=== PATIENT | female | born 1975 | race Caucasian/White ===

== ENCOUNTER → 2016-11-22 | Outpatient (CLI) | payer BC ==
[~2016-11-22] MED LIST: DOCU100C37 PO; HYDR-3816 PO; IBUP-1773 PO; LEVO25TA5 PO; SIME80TA16 PO
--- OUTSIDE RECORDS SUMMARY | 2016-11-22 13:52 | XMS REPORT | Continuity of Care Document ---
Author Author [facility] Organization [facility] Address Unknown Phone Unavailable Allergies Medications Problems Date Dx Coded Attending Type Code Diagnosis Diagnosed By 09/08/2015 EL LOCKE MD Ot Z12.31 10/27/2016 EL LOCKE MD Ot Z12.31 ENCNTR SCREEN MAMMOGRAM FOR MALIGNANT NE 10/27/2016 EL LOCKE MD Ot Z12.31 ENCNTR SCREEN MAMMOGRAM FOR MALIGNANT NE 10/27/2016 EL LOCKE MD Ot Z12.31 ENCNTR SCREEN MAMMOGRAM FOR MALIGNANT NE 10/30/2016 EL LOCKE MD Ot Z12.31 ENCNTR SCREEN MAMMOGRAM FOR MALIGNANT NE 10/30/2016 EL LOCKE MD Ot Z12.31 ENCNTR SCREEN MAMMOGRAM FOR MALIGNANT NE Procedures Results Encounters ACCT No. Visit Date/Time Discharge Status Pt. Type Provider Facility Loc./Unit Complaint [id number] 08/26/2015 10:21:00 ACT Outpatient EL LOCKE MD [facility] RAD SCREENING
--- NOTE | 2016-11-22 19:33 | Diagnostic Imaging Report ---
Transabdominal and transvaginal pelvic ultrasound. INDICATION: Irregular bleeding. Dysmenorrhea. FINDINGS: The uterus is 9.6 x 6.2 x 5.9 cm. The endometrial stripe is 0.7 cm in thickness. The myometrium is slightly heterogeneous. There is an isoechoic nodule in the anterior aspect of the myometrium within the uterine body measuring 1.3 x 1 x 1.3 cm suggestive of a fibroid. The right ovary is 4.1 x 4.4 x 4.5 cm only seen on transabdominal imaging and demonstrates a cyst measuring 3.1 cm with minimal internal echoes. This is only seen on transabdominal view. The left ovary is not seen, obscured by bowel gas. IMPRESSION: 1. Enlarged slightly heterogeneous uterus with 1.3 cm anterior myometrial fibroid. Background adenomyosis in the myometrium could be present. 2. A 3.1 cm cystic lesion in the right ovary with minimal internal echoes, probably a complicated cyst. Followup ultrasound in 6 weeks is recommended. 3. The left ovary is not seen. Dictated by: Dictated on workstation # [id number]
== END ==
LOC: RAD 13:48
PROVIDERS: ATTEND Obstetrics & Gynecology
DX: N93.8 Other specified abnormal uterine and vaginal bleeding (principal); N94.5 Secondary dysmenorrhea; L68.0 Hirsutism
CPT/HCPCS: 76830; 76856

== ENCOUNTER 2016-12-04 14:17 | Outpatient (CLI) | payer BC ==
[~2016-12-04] VITALS: Ht 162.6 cm; Wt 92.2 kg
--- OUTSIDE RECORDS SUMMARY | 2016-12-04 14:21 | XMS REPORT | Continuity of Care Document ---
Author Author [facility] Organization [facility] Address Unknown Phone Unavailable Allergies Medications Problems [...] Z12.31 ENCNTR SCREEN MAMMOGRAM FOR MALIGNANT NE 11/22/2016 EL LOCKE MD Ot Z12.31 ENCNTR SCREEN MAMMOGRAM FOR MALIGNANT NE 11/22/2016 BRET STEWART DO Ot L68.0 HIRSUTISM 11/22/2016 BRET STEWART DO Ot N93.8 OTHER SPECIFIED ABNORMAL UTERINE AND VAG 11/22/2016 BRET STEWART DO Ot N94.5 SECONDARY DYSMENORRHEA Procedures Results Encounters ACCT No. Visit Date/Time Discharge Status Pt. Type Provider Facility Loc./Unit Complaint [id number] 11/22/2016 13:48:00 ACT Outpatient BRET STEWART DO [facility] RAD ABNORMAL UTERINE BLEEDING [id number] 08/26/2015 10:21:00 ACT Outpatient EL LOCKE MD [facility] RAD SCREENING
[2016-12-04] MEDS ORDERED: LEVO25TA5 PO (14:29)
[2016-12-04 14:32] VITALS: BP 128/74
[2016-12-04 15:06] LABS: BASOPHILS % (AUTO) 0 % (0-10); EOSINOPHILS # (AUTO) 0.1 10^3/uL (0.0-0.3); EOSINOPHILS % (AUTO) 1 % (0-10); LYMPHOCYTES # (AUTO) 2.1 X 10^3 (1.0-4.0); LYMPHOCYTES % (AUTO) 30 % (12-44); MEAN CORPUSCULAR HEMOGLOBIN 30 PG (25-34); MEAN CORPUSCULAR HGB CONC 35 G/DL (32-36); MEAN CORPUSCULAR VOLUME 86 FL (80-99); MEAN PLATELET VOLUME 9.9 FL (7.4-10.4); MONOCYTES # (AUTO) 0.4 X 10^3 (0.0-1.0); MONOCYTES % (AUTO) 5 % (0-12); NEUTROPHILS # (AUTO) 4.3 X 10^3 (1.8-7.8); NEUTROPHILS % (AUTO) 63 % (42-75); PLATELET COUNT 227 10^3/uL (130-400); RED BLOOD COUNT 4.18 10^6/uL (4.35-5.85); RED CELL DISTRIBUTION WIDTH 12.5 % (10.0-14.5); WHITE BLOOD COUNT 6.9 10^3/uL (4.3-11.0)
[2016-12-04 15:35] LABS: BAND NEUTROPHILS 0 %; BASOPHILS % (MANUAL) 0 %; EOSINOPHILS % (MANUAL) 2 %; LYMPHOCYTES % (MANUAL) 27 %; NEUTROPHILS % (MANUAL) 69 %
== END 2016-12-04 15:14 | disposition home or self-care (01) ==
LOC: PREOP 14:17
PROVIDERS: ATTEND Obstetrics & Gynecology
DX: Z01.812 Encounter for preprocedural laboratory examination (principal); Z11.2 Encounter for screening for other bacterial diseases; D25.9 Leiomyoma of uterus, unspecified
CPT/HCPCS: 36415; 85007; 85027; 86850; 86900; 86901; 87081

== ENCOUNTER 2016-12-06 09:20 | Day surgery (SDC) | payer BC ==
[~2016-12-06] VITALS: Ht 162.6 cm; Wt 92.2 kg
[~2016-12-06 09:20] MED LIST changes: -DOCU100C37 PO; -HYDR-3816 PO; -IBUP-1773 PO; -SIME80TA16 PO
--- OUTSIDE RECORDS SUMMARY | 2016-12-06 09:27 | XMS REPORT | Continuity of Care Document ---
Author Author [facility] Organization [facility] Address Unknown Phone Unavailable Care Team Providers Care Quantitative Equity Head Name Role Phone NO, LOCAL PHYSICIAN PCP Unavailable Insurance Providers Payer Name Policy Number Subscriber Name [facility] [id number] Rosalva Peters Self / Same As Patient Advance Directives Directive Response Recorded Date/Time Advance Directives No 12/04/16 2:27pm Health Care Power of Public Relations Writer No 12/04/16 2:27pm Resuscitation Status Full Code 12/04/16 2:27pm Problems No problem information available. Medications Current Home Medications Medication Dose Units Route Directions Days/Qty Instructions Start Date Levothyroxine Sodium 25 Mcg 25 Mcg Oral Daily 12/04/16 Social History Social History Problem Response Recorded Date/Time Alcohol Use Rarely Uses 12/04/2016 2:27pm Recreational Drug Use No 12/04/2016 2:27pm Recent Foreign Travel No 12/04/2016 2:26pm Recent Infectious Disease Exposure No 12/04/2016 2:26pm Sexually Transmitted Disease No 12/04/2016 2:27pm HIV/AIDS No 12/04/2016 2:27pm Smoking Status Never a Smoker 12/04/2016 2:27pm Recent Hopitalizations No 12/04/2016 2:27pm Sexually Transmitted Disease No 12/04/2016 2:27pm Query Response Start Date Stop Date Smoking Status Never a Smoker Hospital Discharge Instructions No hospital discharge instructions. Plan of Care Discharge Date 12/04/16 3:14pm Prescriptions See Medication Section Functional Status No functional status results. Allergies, Adverse Reactions, Alerts No known allergies. Immunizations No immunization records. Vital Signs Acute Vital Signs Vital Response Date/Time Pulse Rate (adult) 67 bpm (60 - 90) 12/04/2016 2:32pm Respiratory Rate 16 bpm (12 - 24) 12/04/2016 2:32pm O2 Sat by Pulse Oximetry 98 % (88 - 100) 12/04/2016 2:32pm Blood Pressure 128/74 mm Hg 12/04/2016 2:32pm Blood Pressure Mean 92 mm Hg 12/04/2016 2:32pm Pain Numeric Pain Scale 0-No Pain 12/04/2016 2:32pm Height (Feet) 5 feet 12/04/2016 2:26pm Height (Inches) 4.00 inches 12/04/2016 2:26pm Height (Calculated Centimeters) 162.142188 cm 12/04/2016 2:26pm Weight (Pounds) 203 pounds 12/04/2016 2:26pm Weight (Ounces) 3.0 oz 12/04/2016 2:26pm Weight (Calculated Grams) 27278.30 gm 12/04/2016 2:26pm Weight (Calculated Kilograms) 92.061358 kilograms 12/04/2016 2:26pm Calculated BMI 34.9 12/04/2016 2:26pm Results Pending Laboratory Results Test Name Collection Date/Time Procedures No known history of procedures. Encounters Encounter Location Arrival/Admit Date Discharge/Depart Date Attending Provider Departed Clinic [facility] 12/04/16 2:17pm 12/04/16 3: 14pm BRET STEWART DO Registered Clinic [facility] 11/22/16 1:48pm BRET STEWART DO
--- OUTSIDE RECORDS SUMMARY | 2016-12-06 09:27 | XMS REPORT | Continuity of Care Document ---
Author Author [facility] Organization [facility] Address Unknown Phone Unavailable Care Team Providers Care Meter Setter Name Role Phone NO, LOCAL PHYSICIAN PCP Unavailable Insurance Providers Payer Name Policy Number Subscriber Name Relationship [facility] [id number] Rosalva Peters Self / Same As Patient Advance Directives Directive Response Recorded Date/Time Advance Directives No 12/04/16 2:27pm Health Care Power of Baby Nurse No 12/04/16 2:27pm Resuscitation Status Full Code [...] 4.00 inches 12/04/2016 2:26pm Height (Calculated Centimeters) 162.720396 cm 12/04/2016 2:26pm Weight (Pounds) 203 pounds 12/04/2016 2:26pm Weight (Ounces) 3.0 oz 12/04/2016 2:26pm Weight (Calculated Grams) 78372.30 gm 12/04/2016 2:26pm Weight (Calculated Kilograms) 92.887240 kilograms 12/04/2016 2:26pm Calculated BMI 34.9 12/04/2016 2:26pm Results Pending Laboratory Results Test Name Collection Date/Time Procedures No known history of procedures. Encounters Encounter Location Arrival/Admit Date Discharge/Depart Date Attending Provider Departed Clinic [facility] 12/04/16 2:17pm 12/04/16 3: 14pm BRET STEWART DO Registered Clinic [facility] 11/22/16 1:48pm BRET STEWART DO
[2016-12-06] MEDS: LACTATED RINGERS 1,000 ML IV PRN ×2 (09:45→12:10)
[2016-12-06] MEDS ORDERED: metroNIDAZOLE 500MG/100ML IVPB 100 ML ONE (09:45)
[2016-12-06] MEDS ORDERED: ceFAZolin 2 GM/50 ML NS 50 ML IV ONE (09:45)
[2016-12-06] MEDS ORDERED: ceFAZolin 2 GM/NS 50 ML IV ONE (10:00)
[2016-12-06] MEDS ORDERED: metroNIDAZOLE 500 MG/100 ML IVPB (PRE-MIX) IV ONE (10:00)
--- NOTE | 2016-12-06 10:59 | Progress Note-Pre Operative ---
Pre-Operative Progress Note H&P Reviewed The H&P was reviewed, patient examined and no changes noted. Date H&P Reviewed: Dec 06, 2016 Time H&P Reviewed: 09:45 Pre-Operative Diagnosis: AUB, Fibroid uterus, Pelvic pain BRET STEWART DO Dec 06, 2016 10:59 am
[2016-12-06 11:10] VITALS: BP 117/74
[2016-12-06] MEDS ORDERED: BUPIVACAINE 0.25% 30 ML (SENSORCAINE) VIAL ONE (11:19)
[2016-12-06] MEDS ORDERED: MIDAZOLAM 2 MG/2 ML (VERSED) VIAL ONE (11:35)
[2016-12-06] MEDS ORDERED: SEVOFLURANE (ULTANE) 15 ML INHAL SOLN ONE ×7 (11:35→13:14)
[2016-12-06] MEDS ORDERED: LACTATED RINGERS 1,000 ML IV ONE ×3 (11:35→13:14)
[2016-12-06] MEDS ORDERED: proPOfol 200 MG/20 ML (DIPRIVAN) VIAL IV ONE ×2 (11:35→13:14)
[2016-12-06] MEDS ORDERED: LIDOCAINE PF 2% 10 ML (XYLOCAINE) AMP ONE (11:35)
[2016-12-06] MEDS ORDERED: fentaNYL INJECTION 250 MCG/5 ML AMP ONE (11:36)
[2016-12-06] MEDS ORDERED: HYDROmorphone (DILAUDID) 2 MG/ML VIAL ONE (12:46)
[2016-12-06] MEDS ORDERED: ONDANSETRON 4 MG/2 ML (SDV) Z0FRAN ONE (12:47)
[2016-12-06] MEDS ORDERED: morphine INJ 10 MG/ML 1ML (SYR OR VIAL) ONE (12:47)
[2016-12-06] MEDS ORDERED: KETOROLAC 30 MG/ML VIAL ONE ×2 (12:54→13:14)
[2016-12-06] MEDS ORDERED: GLYCOPYRROLATE 0.2 MG/ML (ROBINUL) 2 ML VIAL ONE (13:14)
[2016-12-06] MEDS ORDERED: ROCURONIUM 50 MG/5 ML (ZEMURON) VIAL IV ONE (13:14)
[2016-12-06] MEDS ORDERED: NEOSTIGMINE (BLOXIVERZ ) 1 MG/1ML 10 ML VIAL ONE (13:14)
[2016-12-06] MEDS: KETOROLAC 30 MG/ML VIAL IV PRN ×2 (13:15→18:51)
[2016-12-06] MEDS ORDERED: LACTATED RINGERS 1,000 ML IV SCH (13:17)
--- NOTE | 2016-12-06 13:19 | Discharge Inst-Women's Service ---
Discharge Inst-Women's Serv Depart Medication/Instructions New, Converted or Re-Newed RX: RX on Chart Consults/Follow Up Additional Follow Up: No Orders/Referrals Dr. Alvarado in 7-10 days and in 8 weeks Activity Activity: Activity as Tolerated Driving Instructions: No Driving for 1 Week NO SMOKING: NO SMOKING Nothing Inside Vagina: No Douching, No [place], No Tampons Diet Discharge Diet: No Restrictions Symptoms to Report to : Bleeding Excessive, Pain Increased, Fever Over 101 Degrees F, Vaginal Bleeding Increase, Questions/Concerns For Any Problems or Questions: Contact Your Physician Skin/Wound Care Infection Signs and Symptoms: Increased Redness, Foul Odor of Wound, Increased Drainage, Skin Itchy or Has a Rash, Increased Swelling, Temperature Above 101 F Operative Area Clean and Dry: Keep Incision Clean/Dry Stitches/Rinku/Dermabond: Dermabond, Care of Stitches Bathing Instructions: BRET Araujo DO Dec 06, 2016 13:19
[2016-12-06] MEDS ORDERED: HYDR-3816 PO (13:20)
[2016-12-06] MEDS ORDERED: SIME80TA16 PO (13:20)
[2016-12-06] MEDS ORDERED: IBUP-1773 PO (13:20)
[2016-12-06] MEDS ORDERED: DOCU100C37 PO (13:20)
[2016-12-06] MEDS ORDERED: CHLORASEPTIC LOZENGE MM PRN (13:30)
[2016-12-06] MEDS ORDERED: DOCUSATE SODIUM 100 MG (COLACE) CAP PO PRN (13:30)
[2016-12-06] MEDS ORDERED: ONDANSETRON 4 MG/2 ML (SDV) Z0FRAN IV PRN (13:30)
[2016-12-06] MEDS ORDERED: SIMETHICONE 80 MG (MYLICON) CHEW PO PRN (13:30)
[2016-12-06] MEDS ORDERED: HYDROcodone/APAP 7.5 MG/325 MG (LORTAB, LORCET PLUS) TABLET PO PRN (13:30)
[2016-12-06] MEDS ORDERED: ZOLPIDEM 5 MG (AMBIEN) TAB PO PRN (13:30)
[2016-12-06] MEDS ORDERED: ANTACID SUSP 30 ML UDC (MYLANTA) PO PRN (13:30)
[2016-12-06] MEDS ORDERED: HYDROmorphone (DILAUDID) 2 MG/ML VIAL IV PRN (13:45)
[2016-12-06] MEDS ORDERED: fentaNYL INJECTION 100 MCG/2 ML AMP IV PRN (13:45)
[2016-12-06] MEDS ORDERED: ONDANSETRON 4 MG/2 ML (SDV) Z0FRAN IV ONE (13:45)
[2016-12-06] MEDS: morphine INJ 10 MG/ML 1ML (SYR OR VIAL) IV PRN ×2 (13:49→13:55)
[2016-12-06 14:55] VITALS: BP 110/67
[2016-12-06 15:45] VITALS: BP 118/68
[2016-12-06] MEDS ORDERED: FUROSEMIDE 40 MG/4 ML INJ (LASIX) IVP ONE (16:15)
[2016-12-06] MEDS ORDERED: FLU TRIvalent (5 YOA+) 2016-17 (AFLURIA) 0.5 ML IM ONE (18:00)
[2016-12-06 20:00] VITALS: BP 133/67
[2016-12-07] MEDS ORDERED: IBUPROFEN 600 MG (MOTRIN) TAB PO PRN (06:00)
--- NOTE | 2016-12-07 08:40 | OPERATIVE REPORT ---
PROCEDURE PHYSICIAN: GASTON STEWART DATE OF PROCEDURE: 12/06/2016 PREOPERATIVE DIAGNOSIS: 1. 42-year-old female with chronic pelvic pain. 2. Abnormal uterine bleeding. 3. Fibroid uterus. POSTOPERATIVE DIAGNOSIS: 1. 42-year-old female with chronic pelvic pain. 2. Abnormal uterine bleeding. 3. Fibroid uterus. PROCEDURE: Robotic assisted total laparoscopic hysterectomy with bilateral salpingectomy, greater than 250 grams. SURGEON: Dr. Gaston Stewart. RUBBER STAMP MAKER: Vonda Najera APRN ANESTHESIA: General endotracheal. ESTIMATED BLOOD LOSS: 30 mL. URINE OUTPUT: 50 mL, clear at the end of the procedure. FLUIDS: 1200 mL of lactated ringer solution. FINDINGS: Bulky hyperemic appearing uterus with grossly normal bilateral fallopian tubes, and ovaries. Areas suggestive of chronic endometriosis. SPECIMEN SENT: Uterus, bilateral fallopian tubes. INDICATIONS FOR THE PROCEDURE: Please see admission H&P for complete details, pertaining to patient's admission. Indications for operative procedure as well as risk, alternatives were discussed with the patient. The patient's consent was taken in the preoperative area and after the consent was reviewed and all of her questions were answered. OPERATIVE REPORT IN DETAIL: Once in the operating room, general anesthesia was found to be adequate. She was placed in dorsal lithotomy position, prepped and draped in the normal sterile fashion. Ravi catheter was placed using sterile technique. A timeout is performed. A weighted speculum is inserted patient's vagina. A right angle retractor is used to visualize the cervix. It was grasped at the 12 o'clock position using a long single tooth tenaculum. An 0 Vicryl suture is placed at the anterior lip of the cervix and the single-tooth tenaculum is then removed. I then use that suture as my retraction point on the cervix. The cervix was then sounded and uterine cavity depth is found to be 8 cm. I then select an 8 cm manipulator tip and a 4 cm colpotomy ring and advance the tip into the uterus deploying the balloon and the colpotomy ring around the vaginal fornix. Once this is in place, excellent uterine manipulation is noted. I then perform a change of gloves and take my attention the abdomen where infraumbilically I infiltrate this area using 0.25% Marcaine make 8 mm incision and direct a Veress needle through this incision until excellent placement is confirmed using saline drop test. I then proceed with insufflation using CO2 gas, opening pressure of 5 mmHg is noted. I proceeded to maximum pressure of 15 mmHg at which point I remove the Veress needle, introduce an 8 mm blunt da Evens camera trocar. Once this is in place I am able to confirm intraperitoneal placement using the da Evens laparoscope. I then placed 2 lateral trocars; these are both 8 mm trocars, they are approximately 8 cm lateral to my infraumbilical trocar. Care is taken to infiltrate before injecting the skin with 0.25% Marcaine. I then make 8 mm incision and direct the trocar through the incision under direct visualization of the laparoscope. Once these are in place, I bring the da Evens robot and dock it in the appropriate fashion, placing the monopolar tomeka in the right hand and the da Evens vessel sealer in the left hand. After scanning the pelvic anatomy the patient was placed in steep Trendelenburg prior to docking the robot. I perform the following dissection bilaterally; I grasp the utero-ovarian ligament, bipolar cauterize it using the vessel sealer and transect it using the vessel sealer. I create a window in the mesosalpinx using monopolar tomeka and take the dissection down the mesosalpinx using the vessel sealer and transect it away from its blood supply. I then grasp the round ligament, bipolar cauterize this and transect it using the vessel sealer. I then grasp the entire broad ligament, bipolar cauterize it and transect it using the vessel sealer down to the level of the lower uterine segment at which point I separate the anterior posterior leaflets of the broad ligament anteriorly leaflet taken around the anterior vaginal fornix. The posterior leaflet is taken around to the posterior vaginal fornix. This exposes and allows me to skeletonize the uterine vessels bilaterally. I then am able to bipolar cauterize them and transect them using the vessel sealer. Once this is done, I have a circumferential view of the colpotomy ring of the DONNA uterine manipulator. I then perform a colpotomy at 12 o'clock position and take this colpotomy circumferentially using the monopolar tomeka, amputating the cervix away from the vaginal fornix. The uterus, bilateral fallopian tubes, and ovaries are removed through the vagina. The lateral apices of the vaginal cuff are then closed using 2-0 Vicryl suture in a [id number] colposuspension fashion suspending them to the uterosacral ligaments. I then close the remainder of the vaginal cuff using 2-0 V-Loc in a running fashion. There is no active bleeding noted from any my dissection planes. I then undock the da Evens robot and proceed with the remainder of the case laparoscopically. I then copiously irrigate the pelvis using normal saline. There is no active bleeding noted from any my dissection planes. I place FloSeal hemostatic agent over my planes of dissection to ensure postoperative hemostasis and take the patient out of steep Trendelenburg. I then remove the lateral trocars under visualization of the laparoscope. There is no active bleeding noted from the trocars intraperitoneally. I then release insufflation through the umbilical trocar and introduce a 10 mL of 0.25% Marcaine into the peritoneal cavity for postoperative pain management. I then remove this trocar as well. The skin was then closed using 4-0 Monocryl interrupted subcuticular stitches. Dermabond is applied to the incisions and Band-Aids are placed over this. The Ravi catheter was left in place. The patient tolerated the procedure well and was taken to the recovery area in stable condition. Lap and sponge counts correct at the end of the procedure. Instrument counts correct as well. 2 grams of Ancef, 500 mg of Flagyl given preoperatively for infection prophylaxis. Job ID: [id number] Dictated Date: 12/06/2016 13:30:01 Road Builder Date: 12/07/2016 08:09:57 / noy
== END 2016-12-06 22:20 | disposition home or self-care (01) ==
LOC: SDC 09:20 → WS 14:35 → SDC 22:20
PROVIDERS: ATTEND Obstetrics & Gynecology
DX: D25.1 Intramural leiomyoma of uterus (principal); D25.2 Subserosal leiomyoma of uterus; N83.8 Other noninflammatory disorders of ovary, fallopian tube and broad ligament; N93.9 Abnormal uterine and vaginal bleeding, unspecified
CPT/HCPCS: 84703; 88307; 94664; 96375

== ENCOUNTER → 2018-03-27 | Outpatient (CLI) | payer BC ==
[~2018-03-27] MED LIST changes: +DOCU100C37 PO; +HYDR-34 PO; +IBUP-1773 PO; +SIME80TA16 PO
--- NOTE | 2018-03-27 13:32 | Diagnostic Imaging Report ---
INDICATION: Routine screening. Comparison is made with prior study from 08/26/2015. 2-D and 3-D bilateral screening mammography was performed with CAD. Both breasts are heterogeneously dense, limiting the sensitivity of mammography. The parenchymal pattern appears stable. No mass or malignant appearing microcalcifications are seen. The axillae are unremarkable. IMPRESSION: BI-RADS category one No mammographic features suspicious for malignancy are identified. ACR BI-RADS Category 1: Negative. Result letter will be mailed to the patient. Note: At least 10% of breast cancer is not imaged by mammography. Dictated by: Dictated on workstation # [id number]
== END ==
LOC: RAD 10:02
PROVIDERS: ATTEND Obstetrics & Gynecology
DX: Z12.31 Encounter for screening mammogram for malignant neoplasm of breast (principal)
CPT/HCPCS: 77067

== ENCOUNTER → 2019-07-14 | Outpatient (CLI) | payer BC ==
--- NOTE | 2019-07-14 19:05 | Diagnostic Imaging Report ---
INDICATION: Routine screening. Comparison is made with prior mammogram from 03/27/2018 and 08/26/2015. 2-D and 3-D bilateral screening mammography was performed with CAD. The current study was also evaluated with a Computer Aided Detection (CAD) system. 3-D tomosynthesis was also performed and reviewed. Both breasts are heterogeneously dense, limiting the sensitivity of mammography. The parenchymal pattern is stable. No mass or malignant appearing microcalcifications are seen. The axillae are unremarkable. IMPRESSION: No mammographic features suspicious for malignancy are identified. ACR BI-RADS Category 1: Negative. Result letter will be mailed to the patient. Note: At least 10% of breast cancer is not imaged by mammography. Dictated by: Dictated on workstation # [id number]
== END ==
LOC: RAD 12:18
PROVIDERS: ATTEND Obstetrics & Gynecology
DX: Z12.31 Encounter for screening mammogram for malignant neoplasm of breast (principal)
CPT/HCPCS: 77067

== ENCOUNTER → 2022-02-07 | Outpatient (CLI) | payer BC | LOC: RAD 11:00 | PROVIDERS: ATTEND Obstetrics & Gynecology | DX: Z12.31 Encounter for screening mammogram for malignant neoplasm of breast (principal) | CPT/HCPCS: 77063; 77067 ==

== ENCOUNTER → 2023-08-13 | Outpatient (CLI) | payer BC ==
--- NOTE | 2023-08-13 16:41 | Diagnostic Imaging Report ---
PROCEDURE: US Thyroid. TECHNIQUE: Multiple real-time grayscale images were obtained of the thyroid in various projections. INDICATION: Thyroid nodule. COMPARISON: None. FINDINGS: The right thyroid lobe measures 5.5 x 2.2 x 1.6 cm. The left thyroid lobe measures 5.3 x 2.2 x 1.5 cm. The isthmus measures 0.3 cm. The thyroid parenchyma is slightly heterogenous. The vascularity is within normal limits. No suspicious thyroid nodules. There are a few small bilateral follicular cysts. IMPRESSION: No suspicious thyroid nodules. Dictated by: Dictated on workstation # [id number]
--- NOTE | 2023-08-13 17:46 | Diagnostic Imaging Report ---
CLINICAL INDICATION: Patient with dizziness. COMPARISON: None. EXAM: Real-time ultrasound carotid Doppler duplex imaging is performed bilaterally with multiple real-time grayscale images obtained in various projections. Additional spectral analysis and color Doppler duple images were also obtained. Peak systolic velocity, ICA/CCA peak systolic ratio, spectral analysis, and vascular morphology are studied. FINDINGS: ARTERY VELOCITY Right Left CCA 0.99 m/s 0.90 m/s ICA 0.88 m/s 0.88 m/s ECA 0.85 m/s 0.65 m/s ICA/CCA 0.9 1.0 VERT.ART Antegrade Antegrade There is no significant atherosclerotic disease. IMPRESSION: There is no grayscale or Doppler evidence of significant vascular stenosis. Dictated by: Dictated on workstation # [id number]
--- NOTE | 2023-08-13 19:15 | Diagnostic Imaging Report ---
Indication: Routine screening. Comparison is made with prior mammograms from 02/07/2022 and 07/14/2019. 2-D and 3-D bilateral screening mammography was performed with CAD. Both breasts are heterogeneously dense, limiting the sensitivity of mammography. The parenchymal pattern is stable. No mass or malignant-appearing microcalcifications are identified. Axillae are unremarkable. IMPRESSION: BI-RADS Category 1 No mammographic features suspicious for malignancy are identified. ACR BI-RADS Category 1: Negative. Result letter will be mailed to the patient. Note: At least 10% of breast cancer is not imaged by mammography. Dictated by: Dictated on workstation # [id number]
== END ==
LOC: RAD 14:01
PROVIDERS: ATTEND Nurse Practitioner Family
DX: Z12.31 Encounter for screening mammogram for malignant neoplasm of breast (principal); E04.1 Nontoxic single thyroid nodule; Z28.21 Immunization not carried out because of patient refusal; R42 Dizziness and giddiness; E03.9 Hypothyroidism, unspecified; Z82.49 Family history of ischemic heart disease and other diseases of the circulatory system
CPT/HCPCS: 76536; 77063; 77067; 93880